=== PATIENT | male | born 2000 | race African-American/Black ===

== ENCOUNTER 2019-06-16 13:02 | Emergency (ER) | payer SELFPAY ==
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
--- NOTE | 2019-06-16 13:31 | CT ---
INDICATION: Head injury. TECHNIQUE: Noncontrast head CT scan. COMPARISON: No comparison studies are available FINDINGS: Axial noncontrast images through the brain parenchyma demonstrates no acute intracranial hemorrhage or mass. No midline shift. No abnormal extra-axial air fluid collections. Partial opacification of the ethmoid air cells. The paranasal sinuses, mastoid air cells skull and scalp otherwise appears unremarkable. Left vertex small scalp hematoma. Impression : 1. No acute intracranial hemorrhage or mass. 2. Small left vertex scalp hematoma . Please note that all CT scans at this facility use dose modulation, iterative reconstruction, and/or weight-based dosing when appropriate to reduce radiation dose to as low as reasonably achievable. Dictated by Zaina Zaragoza MD @ Jun 16 2019 1:27PM Signed by Dr. Zaina Zaragoza @ Jun 16 2019 1:30PM
== END 2019-06-16 14:10 | disposition home or self-care (01) ==
LOC: MW.ED 13:02
DX: S06.9X9A Unspecified intracranial injury with loss of consciousness of unspecified duration, initial encounter (principal); S00.03XA Contusion of scalp, initial encounter; Y04.2XXA Assault by strike against or bumped into by another person, initial encounter
CPT/HCPCS: 70450; 70450-26; 99284-25